=== PATIENT | male | born 1990 | race Caucasian/White ===

== ENCOUNTER 2018-05-20 04:04 | Emergency (ER) | payer OTHER ==
[2018-05-20] MEDS: ACETAMINOPHEN 500 MG TAB PO (04:35)
[2018-05-20] MEDS: DIPHTH/TET/ACEL PERTUSS (ADULT) 0.5 ML VIAL IM* (04:36)
== END 2018-05-20 05:55 | disposition home or self-care (01) ==
LOC: E/R 04:04
DX: S00.83XA Contusion of other part of head, initial encounter (principal); S60.811A Abrasion of right wrist, initial encounter; S60.511A Abrasion of right hand, initial encounter; S60.512A Abrasion of left hand, initial encounter; F17.210 Nicotine dependence, cigarettes, uncomplicated; Y04.8XXA Assault by other bodily force, initial encounter; Z23 Encounter for immunization; Z21 Asymptomatic human immunodeficiency virus [HIV] infection status
CPT/HCPCS: 70450; 90471; 90715; 99284-25